=== PATIENT | female | born 1975 | race Caucasian/White ===

== ENCOUNTER → 2016-05-14 | Outpatient (CLI) | payer OTHER ==
--- NOTE | 2016-05-14 09:15 | MA ---
Screening Digital Mammogram Clinical Indications: Routine screening. Technique: Standard cephalocaudal and mediolateral oblique projections are obtained. An additional o blique lateral view is performed of the left breast. This examination was processed by the there[employer] ter aided detection system. Comparison: None Breast density: C; The breast tissue is heterogeneously dense, which could obscure detection of small masses. Findings: CAD was reviewed. Possible focal asymmetry with architectural distortion upper inner left b reast. The remainder of the left and right breast are unremarkable.. Impression: Possible focal abnormality upper inner left breast. Irate 0 additional imaging left breast. Recommendation: Left breast: Diagnostic mammography with spot compression views and true lateral mamm ogram, followed by ultrasound, at the discretion of the interpreting radiologist. [facility] will send a result letter to the patient. Negative mammography should not preclude additional workup of a clinically suspicious finding. The patient's information is entered into a reminder system with a target due date for her next mammo gram.
== END ==
LOC: BMCIMAGING 08:15
DX: Z12.31 Encounter for screening mammogram for malignant neoplasm of breast (principal)
CPT/HCPCS: G0202

== ENCOUNTER → 2016-05-29 | Outpatient (CLI) | payer OTHER | LOC: BMCIMAGING 12:57 | DX: R92.8 Other abnormal and inconclusive findings on diagnostic imaging of breast (principal) | CPT/HCPCS: G0206 ==